=== PATIENT | female | born 1995 | race Caucasian/White ===

== ENCOUNTER → 2017-03-12 | Outpatient (CLI) | payer OTHER ==
--- NOTE | 2017-03-12 08:33 | RADIOLOGY REPORT (SQ) ---
EXAM DESCRIPTION: CT HEAD WITHOUT COMPLETED DATE/TIME: 03/12/2017 8:22 am REASON FOR STUDY: SYNCOPE R55 SYNCOPE AND COLLAPSE COMPARISON: None. TECHNIQUE: Axial images acquired through the brain without intravenous contrast. Images reviewed wi th bone, brain and subdural windows. Images stored on PACS. All CT scanners at this facility use dose modulation, iterative reconstruction, and/or weight based d osing when appropriate to reduce radiation dose to as low as reasonably achievable (ALARA). [facility]: Dose Right [facility]: CareDose [facility]: Dose Right [facility]: Teradose 4D [facility]: [employer] RADIATION DOSE: CT Rad equipment meets quality standard of care and radiation dose reduction techniq ues were employed. CTDIvol: 49.0 mGy. DLP: 881 mGy-cm. mGy. LIMITATIONS: None. FINDINGS: VENTRICLES: Normal size and contour. CEREBRUM: No masses. No hemorrhage. No midline shift. No evidence for acute infarction. Normal gra y/white matter differentiation. No areas of low density in the white matter. CEREBELLUM: No masses. No hemorrhage. No alteration of density. No evidence for acute infarction. EXTRAAXIAL SPACES: No fluid collections. No masses. ORBITS AND GLOBE: No intra- or extraconal masses. Normal contour of globe without masses. CALVARIUM: No fracture. PARANASAL SINUSES: No fluid or mucosal thickening. SOFT TISSUES: No mass or hematoma. OTHER: No other significant finding. IMPRESSION: NORMAL BRAIN CT WITHOUT CONTRAST. EVIDENCE OF ACUTE STROKE: NO. COMMENT: Quality ID # [id number]: Final reports with documentation of one or more dose reduction techniques (e.g., Automated exposure control, adjustment of the mA and/or kV according to patient size, use of iterative reconstruction technique) TECHNICAL DOCUMENTATION: JOB ID: [id number] [employer]- All Rights Reserved
== END ==
LOC: RAD 08:08
PROVIDERS: ATTEND Physician Assistant
DX: R55 Syncope and collapse (principal)
CPT/HCPCS: 70450

== ENCOUNTER 2017-04-28 22:14 | Emergency (ER) | payer SELFPAY ==
--- NOTE | 2017-04-28 23:41 | ER Document Report ---
ED GI/ - General Chief Complaint: Low abdominal cramps; Stated Complaint: ABDOMINAL CRAMPS Time Seen by Provider: 04/28/17 23:17 Mode of Arrival: Ambulatory Information source: Patient TRAVEL OUTSIDE OF THE [place] IN LAST 30 DAYS: No - HPI Patient complains to provider of: Pelvic pain Onset: This morning Timing/Duration: Gradual Quality of pain: Cramping Severity at maximum: Moderate Severity in ED: Mild Context: - AT-HOME URINE HCG POSITIVE Location: Suprapubic Vaginal bleeding (Compared to normal period): None Menstrual period history: LMP: UNSURE : 2 Para: 1 Abortions: 0 Sexual history: Active Associated symptoms: Urinary frequency, Other - BREAST SENSITIVITY. denies: Nausea Exacerbated by: Denies Relieved by: Denies Similar symptoms previously: Yes - W/ "OVARIAN CYST" Recently seen / treated by doctor: No - Related Data Allergies/Adverse Reactions: No Known Allergies Allergy (Verified 04/28/17 23:41) Past Medical History - General Information source: Patient - Social History Smoking Status: Never Smoker Chew tobacco use (# tins/day): No Frequency of alcohol use: None Drug Abuse: None Lives with: Family Family History: Reviewed & Not Pertinent Patient has suicidal ideation: No Patient has homicidal ideation: No - Medical History Medical History: Negative Renal/ Medical History: Denies: Hx Peritoneal Dialysis Surgical Hx: Negative Review of Systems - Review of Systems Constitutional: No symptoms reported EENT: No symptoms reported Cardiovascular: No symptoms reported Respiratory: No symptoms reported Gastrointestinal: See HPI Genitourinary: See HPI Female Genitourinary: See HPI Musculoskeletal: No symptoms reported Skin: No symptoms reported Neurological/Psychological: No symptoms reported Physical Exam - Vital signs Vitals: Temp Pulse Resp BP Pulse Ox 99.8 F 72 16 115/61 99 04/28/17 22:42 04/28/17 22:42 04/28/17 22:42 04/28/17 22:42 04/28/17 22:42 Interpretation: Normal - General General appearance: Appears well, Alert In distress: None - HEENT Head: Normocephalic Eyes: Normal Conjunctiva: Normal Ears: Normal Nasal: Normal Mouth/Lips: Normal Mucous membranes: Normal - Respiratory Respiratory status: No respiratory distress Breath sounds: Normal - Cardiovascular Rhythm: Regular Heart sounds: Normal auscultation - Abdominal Inspection: Normal Distension: No distension Bowel sounds: Normal - Back Back: Normal. No: CVA tenderness - Extremities General upper extremity: Normal inspection General lower extremity: Normal inspection - Neurological Neuro grossly intact: Yes Cognition: Normal Orientation: AAOx4 - Psychological Associated symptoms: Normal affect, Normal mood - Skin Skin Temperature: Warm Skin Moisture: Dry Skin Color: Normal Skin Turgor: Elastic Course - Vital Signs Vital signs: Temp Pulse Resp BP Pulse Ox 99.8 F 72 16 115/61 99 04/28/17 22:42 04/28/17 22:42 04/28/17 22:42 04/28/17 22:42 04/28/17 22:42 - Laboratory Result Diagrams: 04/28/17 23:35 04/28/17 23:35 Laboratory results interpreted by me: 04/28/17 04/28/17 04/28/17 23:30 23:35 23:35 Hgb 11.8 L MCV 71 L MCH 22.6 L RDW 21.8 H Creatinine 0.49 L Beta HCG, Quant 991.10 H Urine Urobilinogen 4.0 H Ur Leukocyte Esterase SMALL H Urine Ascorbic Acid 20 H Discharge - Discharge Clinical Impression: Pelvic pain during in first trimester, antepartum Condition: Stable Disposition: HOME, SELF-CARE Instructions: Pelvic Pain in and Round Ligament Pain ([facility]) Additional Instructions: REST, DRINK PLENTY OF FLUIDS. YOU MAY TAKE TYLENOL (ACETAMINOPHEN) FOR PAIN IF NEEDED. FOLLOW UP WITH OB. CLINIC OR HEALTH DEPARTMENT FOR PRE- CARE, CALL TOMORROW (WEDNESDAY) FOR APPOINTMENT. RETURN TO E.R. IF YOU GET WORSE OR IF ANY NEW SYMPTOMS, ANY TIME. Referrals: [facility] DEPT [Outside] - Follow up as needed ALEX BLAND MD [ACTIVE STAFF] - Follow up as needed
[2017-04-28 23:52] LABS: ABSOLUTE EOSINOPHILS # (AUTO) 0.2 10^3/uL (0.0-0.6); ABSOLUTE LYMPHOCYTES (AUTO) 3.2 10^3/uL (0.5-4.7); ABSOLUTE MONOCYTES (AUTO) 0.6 10^3/uL (0.1-1.4); ABSOLUTE NEUT (AUTO) 4.4 10^3/uL (1.7-8.2); BASOPHILS % (AUTO) 0.5 % (0-2); EOSINOPHILS % (AUTO) 2.8 % (0-6); HEMATOCRIT 36.8 % (36.0-47.0); HEMOGLOBIN 11.8 g/dL (12.0-15.5); LYMPHOCYTES % (AUTO) 37.6 % (13-45); MEAN CORPUSCULAR HEMOGLOBIN 22.6 pg (27.0-33.4); MEAN CORPUSCULAR VOLUME 71 fl (80-97); PLATELET COUNT 265 10^3/uL (150-450); RED BLOOD COUNT 5.21 10^6/uL (3.72-5.28); RED CELL DISTRIBUTION WIDTH 21.8 % (11.5-14.0); SEGMENTED NEUTROPHILS % (AUTO) 52.1 % (42-78); TOTAL CELLS COUNTED % (AUTO) 100 %; WHITE BLOOD COUNT 8.4 10^3/uL (4.0-10.5)
[2017-04-29 00:01] LABS: APPEARANCE,URINE SLIGHTLY-CLOUDY; BILIRUBIN,URINE NEGATIVE (NEGATIVE); COLOR,URINE YELLOW; GLUCOSE, URINE NEGATIVE (NEGATIVE); KETONES,URINE NEGATIVE (NEGATIVE); LEUKOCYTE ESTERASE,URINE SMALL (NEGATIVE); NITRITE,URINE NEGATIVE (NEGATIVE); PROTEIN,URINE NEGATIVE (NEGATIVE); URINE SPECIFIC GRAVITY 1.023
[2017-04-29 00:07] LABS: ANION GAP 11 (5-19); BLOOD UREA NITROGEN 12 mg/dL (7-20); CALCIUM 9.6 mg/dL (8.4-10.2); CARBON DIOXIDE 23 mmol/L (22-30); CHLORIDE 103 mmol/L (98-107); GLUCOSE 84 mg/dL (75-110); POTASSIUM 3.9 mmol/L (3.6-5.0); SODIUM 137.2 mmol/L (137-145)
[2017-04-29 00:54] VITALS: BP 115/62
== END 2017-04-29 00:54 | disposition home or self-care (01) ==
LOC: ER 22:14
DX: O26.891 Other specified pregnancy related conditions, first trimester (principal); R10.2 Pelvic and perineal pain; R35.0 Frequency of micturition; O92.29 Other disorders of breast associated with pregnancy and the puerperium; Z3A.00 Weeks of gestation of pregnancy not specified; Z87.42 Personal history of other diseases of the female genital tract
CPT/HCPCS: 36415; 80048; 81001; 84702; 85025; 99284